=== PATIENT | female | born 2000 | race Two or more races ===

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

== ENCOUNTER 2020-02-08 01:48 | Emergency (ER) | payer MEDICAID ==
[2020-02-08 02:19] VITALS: BP 113/80
== END 2020-02-08 04:03 | disposition left against medical advice (07) ==
LOC: ER 01:48
DX: Z53.21 Procedure and treatment not carried out due to patient leaving prior to being seen by health care provider (principal); R42 Dizziness and giddiness; R51 Headache; R11.0 Nausea